=== PATIENT | male | born 1995 | race Caucasian/White ===

== ENCOUNTER 2017-06-24 20:47 | Emergency (ER) | payer BC ==
[2017-06-24] MEDS ORDERED: Aspirin Low Dose CHEW TAB* 81 MG PO ONE (22:42)
--- NOTE | 2017-06-24 22:52 | ED ---
HPI Chest Pain - HPI Summary HPI Summary: Pt here w/ Lt sided chest pain x 3 days. Woke up with aching pain within chest - sometimes worse with sharp pain, other times just dull. Nothing alleviates nor exacerbates the pain. Feels pain/numbness sensation has radiated up to his Lt jaw - this has improved since onset yesterday - has dull residual sx now. Denies SOB, difficulty breathing, coughing, pain w/ inspiration, fever, chills, N/V/D, dental pain, facial swelling, ab pain, skin changes, VALERO, numbness, tingling, weakness, lightheadedness, syncope. Although he denies URI sx does report some minor nasal congestion which he's prone to with allergies. Denies injury to the area but initially reports he thought it felt like when he would get sore from throwing his baseball too much with right arm in the past. Has been eating and drinking well w/o exacerbation of pain - reports he's actually hungry now. He also denies recent stress - reports he's been feeling better than normal lately. Denies use of caffeine, stimulants other than occasional ETOH, marijuana ( nothing in past 1 week). No use of hormones. - History of Current Complaint Chief Complaint: EDExtremityUpper Time Seen by Provider: 06/24/17 21:38 Hx Obtained From: Patient Pain Intensity: 4 - Allergy/Home Medications Allergies/Adverse Reactions: Allergies Allergy/AdvReac Type Severity Reaction Status Date / Time Penicillins Allergy Mild Hives Verified 06/24/17 20:56 Home Medications: Home Medications NK [No Home Medications Reported] 06/24/17 [History Confirmed 06/24/17] PMH/Surg Hx/FS Hx/Imm Hx Previously Healthy: Yes Endocrine/Hematology History: Denies: Hx Anticoagulant Therapy, Hx Blood Disorders, Hx Thyroid Disease, Hx Anemia, Hx Unexplained Bleeding, Hx Coagulopothy, Autoimmune Disease Cardiovascular History: Denies: Hx Aneurysm, Hx Atrial Fibrillation, Hx Congenital Heart Disease, Hx Congestive Heart Failure, Hx Coronary Artery Disease, Hx Deep Vein Thrombosis, Hx Hypertension, Hx Myocardial Infarction, Hx Rheumatic Fever, Hx Valvular Heart Disease Respiratory History: Reports: Hx Seasonal Allergies Denies: Hx Asthma, Hx Chronic Obstructive Pulmonary Disease (COPD), Hx Pneumonia GI History: Denies: Hx Gastroesophageal Reflux Disease - Immunization History Date of Influenza Vaccine: 2016 Immunizations Up to Date: Yes Infectious Disease History: No Infectious Disease History: Denies: Traveled Outside the [place] in Last 30 Days - Family History Known Family History: Positive: None - denies fam h/o cardiac dx at young age - Social History Occupation: Student Lives: Dormitory/Roommates Alcohol Use: Occasionally - a few times a year Substance Use Type: Reports: Marijuana - a few times throughout the year - recreationally - last smoked 1 week ago Substance Use Comment - Amount & Last Used: very occasional marijuana Hx Tobacco Use: No Smoking Status (MU): Never Smoked Tobacco Review of Systems Constitutional: Negative Negative: Fever, Chills, Fatigue Eyes: Negative Negative: Photophobia, Blurred Vision, Diplopia Positive: Other - nasal congestion. Negative: Dental Pain, Sore Throat, Ear Ache Positive: Chest Pain - as in HPI. Negative: Palpitations Respiratory: Negative Negative: Shortness Of Breath, Cough Gastrointestinal: Negative Negative: Abdominal Pain, Vomiting, Diarrhea, Nausea Positive: no symptoms reported Musculoskeletal: Negative Skin: Negative Neurological: Other - as in HPI Psychological: Normal All Other Systems Reviewed And Are Negative: Yes Physical Exam Triage Information Reviewed: Yes Vital Signs On Initial Exam: Initial Vitals Temp Pulse Resp BP Pulse Ox 98.2 F 79 16 135/75 99 06/24/17 20:51 06/24/17 20:51 06/24/17 20:51 06/24/17 20:51 06/24/17 20:51 Vital Signs Reviewed: Yes Appearance: Positive: Well-Appearing, No Pain Distress, Well-Nourished - wearing eyeliner, fingernail polished with color Skin: Positive: Warm, Dry - no erythema, no edema, no lesions over affected area Head/Face: Positive: Normal Head/Face Inspection Eyes: Positive: Normal, EOMI, LADY, Conjunctiva Clear ENT: Positive: Normal ENT inspection, Hearing grossly normal, Pharynx normal, Nasal congestion - mild, TMs normal. Negative: Nasal drainage Dental: Negative: Gross Decay/Caries @, Dental Fracture @ Neck: Positive: Supple, Nontender, No Lymphadenopathy. Negative: Enlarged Nodes @ - palpated breast tissue and LN's of chest and Lt UE - no acute findings Respiratory/Lung Sounds: Positive: Clear to Auscultation, Breath Sounds Present. Negative: Decreased Breath Sounds, Rales, Rhonchi, Subcutaneous Emphysema, Stridor, Tracheal Deviation, Wheezes Cardiovascular: Positive: Normal, RRR, Pulses are Symmetrical in both Upper and Lower Extremities, S1, S2. Negative: Murmur, Rub Abdomen Description: Positive: Nontender, No Organomegaly, Soft Bowel Sounds: Positive: Present Musculoskeletal: Positive: Normal, Strength/ROM Intact. Negative: Pain @ - cannot reproduce pain w/ movements nor palpation Neurological: Positive: Normal, Sensory/Motor Intact, Alert, Oriented to Person Place, Time, CN Intact II-III - EXCEPT mildly decreased sensation over Lt jaw when compared to Right Psychiatric: Positive: Normal - Janessa Coma Scale Coma Scale Total: 15 Diagnostics - Vital Signs Vital Signs Temp Pulse Resp BP Pulse Ox 06/24/17 20:51 98.2 F 79 16 135/75 99 - Laboratory Result Diagrams: 06/24/17 23:15 06/24/17 23:15 Lab Statement: Any lab studies that have been ordered have been reviewed, and results considered in the medical decision making process. Chest Pain Course/Dx - Course Course Of Treatment: Pt presents w/ Lt sided chest pain w/o known cause. No alleviating nor exacerbating factors - here to make sure he's okay. ECG NSR w/o acute findings. Labs and imaging are also unremarkable for acute findings. Although the definitive cause of pt's pain was not identified tonight, life threatening causes were ruled out. Advised to tx as HERMELINDA pain and f/u w/ massage/ PT on his own or through [facility]. Reviewed danger s/sx of when to return to ED. Pt agrees w/ plan. - Diagnoses Provider Diagnoses: Chest pain of uncertain etiology Discharge - Discharge Plan Condition: Stable Disposition: HOME Patient Education Materials: Chest Pain (ED) Referrals: [facility] [Primary Care Provider] - Additional Instructions: Although the definitive cause of your pain was not identified tonight, life threatening causes were ruled out. You may follow-up with care of musculoskeletal pain here through a massage therapist, physical therapy, etc. You may seek this care on your own or through [facility]. Call tomorrow to schedule appointment. You may try heat/ice, topical analgesics and ibuprofen alternating with acetaminophen to alleviate pain. *If you develop return/worsening of chest pain with shortness of breath, sweating, nausea, arm/jaw pain, weakness or syncope, return to ED
[2017-06-24 23:34] LABS: Hematocrit 48 % (42-52); Hemoglobin 16.7 g/dl (14.0-18.0); Mean Corpuscular HGB Conc 35 g/dl (31-36); Mean Corpuscular Hemoglobin 30 pg (27-31); Mean Corpuscular Volume 87 fL (80-94); Mean Platelet Volume 8 um3 (7.4-10.4); Red Blood Count 5.54 10^6/ul (4.0-5.4); Red Cell Distribution Width 13 % (10.5-15); White Blood Count 7.1 10^3/ul (3.5-10.8)
[2017-06-24 23:46] LABS: Albumin 5.1 g/dL (3.2-5.2); BUN/Creatinine Ratio 14.9 (8-20); Calcium 10.2 mg/dL (8.6-10.3); EGFR African American 143.9 (>60); EGFR Non-African American 111.9 (>60); Globulin 2.9 g/dL (2-4); Magnesium 2.4 mg/dL (1.9-2.7); Potassium 3.5 mmol/L (3.5-5.0); Total Bilirubin 0.8 mg/dL (0.2-1.0)
[2017-06-25] LABS: TSH (Thyroid Stimulating Horm) 2.66 mcIU/mL (0.34-5.60)
[2017-06-25 00:42] VITALS: BP 112/88
--- NOTE | 2017-06-25 08:38 | RAD ---
INDICATION: Left-sided chest pain COMPARISON: None TECHNIQUE: PA and lateral views of the chest were obtained. FINDINGS: The heart and mediastinum are normal in size and contour. The lungs are grossly clear. There is no evidence of large pleural effusion. Visualized bones are normal for the patient's age. There is no radiographic evidence of free air beneath the diaphragm IMPRESSION: No radiographic evidence of acute cardiopulmonary disease.
== END 2017-06-25 00:41 | disposition home or self-care (01) ==
LOC: ED 20:47
DX: R07.89 Other chest pain (principal); Z88.0 Allergy status to penicillin; F12.90 Cannabis use, unspecified, uncomplicated
CPT/HCPCS: 36415; 71020; 80053; 83605; 83735; 84443; 84484; 85025; 85379; 93005; 99283; A9270-GY